=== PATIENT | male | born 1980 | race Caucasian/White ===

== ENCOUNTER 2019-04-15 15:44 | Emergency (ER) | payer OTHER ==
[~2019-04-15] VITALS: Ht 182.9 cm; Wt 100.9 kg
[2019-04-15 15:48] VITALS: BP 118/56
--- NOTE | 2019-04-15 15:58 | NUR ---
Patient ambulated to bed 11. RN evaluating patient at bedside.
--- NOTE | 2019-04-15 16:21 | NUR ---
PT BIB SELF C/O LT INTERMITENT LT SIDED NUMBNESS X 4 DAYS. PT AAOX4, COOPERATIVE, FACIAL SYMMETRY INTACT, BUE STRONG/EQUAL, SPEECH CLEAR, MEMORY INTACT. VSS. PMH: DENIES
[2019-04-15 16:38] VITALS: BP 118/56
--- NOTE | 2019-04-15 16:38 | NUR ---
Patient discharged with v/s stable. Written and verbal after care instructions given and explained. Patient alert, oriented and verbalized understanding of instructions. Ambulatory with to home. All questions addressed prior to discharge. ID band removed. Patient advised to follow up with PMD. Rx of given. Patient educated on indication of medication including possible reaction and side effects. Opportunity to ask questions provided and answered.
== END 2019-04-15 16:38 | disposition home or self-care (01) ==
LOC: MED 15:44
DX: R20.2 Paresthesia of skin (principal); R19.7 Diarrhea, unspecified; R42 Dizziness and giddiness
CPT/HCPCS: 82948; 99282